=== PATIENT | male | born 1985 ===

== ENCOUNTER 2018-02-16 23:17 | Emergency (ER) | payer SELFPAY ==
[2018-02-16 23:27] VITALS: BP 150/90; PULSE 65; RESP 18; TEMP 97.7; O2SAT 100
--- NOTE | 2018-02-17 00:03 | C.PDOC ---
History Of Present Illness 32 year old male presents to the ER with a complaint of right upper back pain and cough for the past 4 days associated with right shoulder pain. Patient states the cough is nonproductive and the pain worsens with movement. Patient has had the shoulder pain for the past few months but has not gotten it checked, notes he plays racquetball. He has been taking tylenol with minimal relief. Denies weakness, numbness, fever, or chills. Time Seen by Provider: 02/16/18 23:33 Chief Complaint (Nursing): Upper Extremity Problem/Injury History Per: Patient History/Exam Limitations: no limitations Onset/Duration Of Symptoms: Days Current Symptoms Are (Timing): Still Present Exacerbating Factor(s): Movement Recent travel outside of the [place]: No Past Medical History Reviewed: Historical Data, Nursing Documentation, Vital Signs Vital Signs: Last Vital Signs Temp 97.7 F 02/16/18 23:24 Pulse 65 02/16/18 23:24 Resp 18 02/16/18 23:24 BP 150/90 02/16/18 23:24 Pulse Ox 100 02/16/18 23:24 Family History: States: No Known Family Hx - Social History Hx Alcohol Use: No Hx Substance Use: No Review Of Systems Constitutional: Negative for: Fever, Chills Respiratory: Positive for: Cough Musculoskeletal: Positive for: Back Pain (Right upper), Other (Right shoulder pain) Neurological: Negative for: Weakness, Numbness Physical Exam - Physical Exam Appears: Non-toxic Skin: Normal Color, Warm, Dry Head: Atraumatic, Normacephalic Eye(s): bilateral: Normal Inspection Ear(s): Bilateral: Normal Nose: Normal Oral Mucosa: Moist Throat: Normal, No Erythema, No Exudate Neck: Normal, No Midline Cervical Tenderness, No Paracervical Tenderness, Supple Back: No Vertebral Tenderness, No Paraspinal Tenderness Extremity: Normal ROM (x4), No Tenderness, No Deformity, No Swelling Pulses: Left Radial: Normal, Right Radial: Normal Neurological/Psych: Oriented x3, Normal Speech, Normal Motor, Normal Sensation ED Course And Treatment O2 Sat by Pulse Oximetry: 100 (Room air) Pulse Ox Interpretation: Normal Medical Decision Making Medical Decision Making: CXR ordered, results were negative. Motrin administered. Patient is resting comfortably in no acute distress, vitals are stable, will discharge home with instructions to follow up with PMD. Disposition Counseled Patient/Family Regarding: Diagnosis, Need For Followup, Rx Given - Disposition Referrals: [facility] [Outside] [facility] [Outside] Disposition: HOME/ ROUTINE Disposition Time: 00:49 Condition: GOOD Additional Instructions: Follow up with your primary medical doctor or clinic in 2-5 days for further evaluation. Take medications as prescribed. Return to the emergency department at any time if symptoms persist or worsen. 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 - Scribe Statement The provider has reviewed the documentation as recorded by the Scribe Fidencio Howe All medical record entries made by the Nattyibshamar were at my direction and personally dictated by me. I have reviewed the chart and agree that the record accurately reflects my personal performance of the history, physical exam, medical decision making, and the department course for this patient. I have also personally directed, reviewed, and agree with the discharge instructions and disposition.
--- NOTE | 2018-02-17 07:28 | RAD ---
Date of service: 02/17/2018 HISTORY: pain right side and shoulder COMPARISON: No prior. TECHNIQUE: Chest PA and lateral FINDINGS: LUNGS: No active pulmonary disease. PLEURA: No significant pleural effusion identified. No pneumothorax apparent. CARDIOVASCULAR: No aortic atherosclerotic calcification present. Normal cardiac size. No pulmonary vascular congestion. OSSEOUS STRUCTURES: No significant abnormalities. VISUALIZED UPPER ABDOMEN: Normal. OTHER FINDINGS: None. IMPRESSION: No active disease.
== END 2018-02-17 01:03 | disposition home or self-care (01) ==
LOC: C.ER 23:17
DX: S46.911A Strain of unspecified muscle, fascia and tendon at shoulder and upper arm level, right arm, initial encounter (principal); X58.XXXA Exposure to other specified factors, initial encounter; J06.9 Acute upper respiratory infection, unspecified